=== PATIENT | female | born 1985 | race Caucasian/White ===

== ENCOUNTER 2022-12-17 17:52 | Emergency (ER) | payer MEDICAID, SELFPAY ==
[2022-12-17 18:00] VITALS: BP 123/94; PULSE 100; RESP 16; TEMP 37.2; O2SAT 99; BMI 46.8
--- NOTE | 2022-12-17 18:03 | XR_ITS ---
The [address] [address] Patient Name: YARIEL BAILEY MRN: [id number] date: 1985 Sex: F Assigned Patient Location: ER Current Patient Location: ER Accession/Order Number: [id number] Exam Date: 12/17/2022 18:05 Report Date: 12/17/2022 18:49 At the request of: AMALIA LAZARO Procedure: XR hand RT min 3V IMAGES REVIEWED: XR hand RT min 3V COMPARISON: None available. CLINICAL INDICATION: Pain/bruising FINDINGS/IMPRESSION: No evidence of acute osseous abnormality of the right hand/fifth digit. Mild soft tissue swelling. Electronically authenticated by: COOKIE DUVAL Date: 12/17/2022 18:49
--- NOTE | 2022-12-17 18:56 | ED.UPPEXIN1 ---
HPI - Extremity Injury (Upper) General Chief Complaint: Extremity Injury, Upper Stated Complaint: HAND INJURY Time Seen by Provider: 12/17/22 18:40 Source: patient Mode of arrival: walk-in Limitations: no limitations History of Present Illness HPI narrative: patient is a 37-year-old female who presents to the emergency department for the evaluation of an injury to the right hand. She states she punched a door earlier today. She had no other associated injuries. She has had swelling, bruising over the 4th and 5th MCP joints and right 5th metacarpal. no medications taken prior to arrival. She is not concerned for . She denies any pain over the wrist or forearm. Related Data Home Medications Medication Instructions Recorded Confirmed No Known Home Medications 12/17/22 12/17/22 Previous Rx's Medication Instructions Recorded ketorolac 10 mg tablet 10 mg PO TID PRN pain #10 tabs 12/17/22 Allergies Allergy/AdvReac Type Severity Reaction Status Date / Time Penicillins AdvReac Mild Verified 12/17/22 18:03 Review of Systems ROS Constitutional Denies: fever or chills Ears, nose, mouth, and throat Denies: throat pain or neck pain Respiratory Denies: cough Gastrointestinal Denies: nausea or vomiting Musculoskeletal Reports: extremity pain; Denies: back pain or neck pain Integumentary/Breast Denies: rash Neurological Denies: headache PFSH PFSH Social History Smoking status: Former smoker Exam Narrative Exam Narrative: Gen.: Awake, alert, in no distress Head: Normocephalic, atraumatic ENT: Moist mucous membranes Respiratory: No respiratory distress Extremities: Moves extremities equally, swelling, ecchymosis noted over the dorsum of the right hand, 5th metacarpal with mild edema over the 4th and 5th metacarpal joints. Limited flexion and extension of the 4th and 5th digits of the right hand. 2+ right radial pulse. Psych: Normal mood and affect Neuro: No focal neuro deficit Skin: Warm, dry, intact Constitutional Vital Signs - 24 hr 12/17/22 18:00 Temperature 99.0 F Pulse Rate [Monitor] 100 H Respiratory Rate 16 Blood Pressure [Left Arm] 123/94 H Pulse Oximetry 99 Oxygen Delivery Method Room Air Course Vital Signs Vital signs: Vital Signs Temperature 99.0 F 12/17/22 18:00 Pulse Rate 100 H 12/17/22 18:00 Respiratory Rate 16 12/17/22 18:00 Blood Pressure 123/94 H 12/17/22 18:00 Pulse Oximetry 99 12/17/22 18:00 Oxygen Delivery Method Room Air 12/17/22 18:00 Temperature 99.0 F 12/17/22 18:00 Pulse Rate 100 H 12/17/22 18:00 Respiratory Rate 16 12/17/22 18:00 Blood Pressure 123/94 H 12/17/22 18:00 Pulse Oximetry 99 12/17/22 18:00 Oxygen Delivery Method Room Air 12/17/22 18:00 MDM - Extremity Injury (Upper) MDM Narrative Medical decision making narrative: x-rays with no evidence of fracture or dislocation. Patient placed in a metal forearm splint and Reji wrap. she remains neurovascularly intact. Rest, ice, elevate. NSAIDs given for home. Return to the Emergency Room if symptoms change or worsen. Follow-up PCP. Medical Records Attestation: I reviewed the patient's medical records. Imaging Data XR right hand: Attestation: I have reviewed the pertinent imaging results. Radiologist's impression: Procedure: XR hand RT min 3V IMAGES REVIEWED: XR hand RT min 3V COMPARISON: None available. CLINICAL INDICATION: Pain/bruising FINDINGS/IMPRESSION: No evidence of acute osseous abnormality of the right hand/fifth digit. Mild soft tissue swelling. Electronically authenticated by: COOKIE DUVAL Date: 12/17/2022 18:49 Discharge Plan Discharge Chief Complaint: Extremity Injury, Upper Clinical Impression: Contusion of hand, right Patient Disposition: Home, Self-Care Time of Disposition Decision: 18:54 Condition: Good Prescriptions / Home Meds: New ketorolac 10 mg tablet 10 mg PO TID PRN (Reason: pain) Qty: 10 0RF No Action No Known Home Medications Instructions: Contusion in Adults (ED) Stand Alone Forms: Portal Instructions Referrals: Physician,Non-Staff, MD [Primary Care Provider] - 1 week
[2022-12-17] MEDS: KETOROLAC TROMETHAMINE 10 MG TABLET PO (19:04)
== END 2022-12-17 19:10 | disposition home or self-care (01) ==
PROVIDERS: Emergency Provider Emergency Medicine Emergency Medical Services
DX: S60.221A Contusion of right hand, initial encounter (principal); W22.8XXA Striking against or struck by other objects, initial encounter; Z87.891 Personal history of nicotine dependence
CPT/HCPCS: 73130; 99283

== ENCOUNTER 2023-05-19 10:27 | Emergency (ER) | payer MEDICAID, SELFPAY ==
[2023-05-19 10:43] VITALS: BP 111/75; PULSE 77; RESP 18; TEMP 36.8; O2SAT 98; BMI 45.4
--- NOTE | 2023-05-19 10:54 | XR_ITS ---
The [place] [id number] Patient Name: YARIEL BAILEY MRN: [id number] date: 1985 Sex: F Assigned Patient Location: ER Current Patient Location: ED.MAIN Accession/Order Number: [id number] Exam Date: 05/19/2023 11:00 Report Date: 05/19/2023 12:04 At the request of: ARLEY VELA Procedure: XR knee LT 4V LEFT KNEE X-RAY, 4 VIEWS HISTORY: Pain. COMPARISON: None. FINDINGS: No fracture, dislocation, or significant degenerative change is seen. There is no joint effusion. XR/XR knee LT 4V IMPRESSION: Normal knee. Electronically authenticated by: TOBIAS SPEARS Date: 05/19/2023 12:04
--- NOTE | 2023-05-19 17:17 | ED_ITS ---
HPI - General Adult General Chief complaint: Extremity Injury, Lower Stated complaint: LOWER EXTREMITY INJURY LEFT KNEE Time Seen by Provider: 05/19/23 10:53 Source: patient Mode of arrival: Wheelchair Limitations: no limitations History of Present Illness HPI narrative: The patient is coming to the ER with a left knee pain that started after she was trying to carry something patient mentioned that she felt a pop when she was bending over She barely have been able to put weight on her left knee because of the pain and she is not able to bend it Related Data Previous Rx's Medication Instructions Recorded acetaminophen 650 mg 650 mg PO Q8H PRN pain #20 tabs 05/19/23 tablet,extended release (Tylenol 8 Hour) prednisone 50 mg tablet 50 mg PO DAILY 5 days #5 tabs 05/19/23 Allergies Allergy/AdvReac Type Severity Reaction Status Date / Time Penicillins AdvReac Mild Verified 05/19/23 10:42 Review of Systems ROS Status of ROS 10 or more systems reviewed and unremarkable except as noted in history and below PFSH PFS Social History Smoking status: Former smoker Exam Narrative Exam Narrative: Nurses notes and vital signs reviewed and patient is not hypoxic. General: Well-appearing and in no apparent distress. Skin: Warm, dry, no pallor noted. No rash. Head: Normocephalic, atraumatic. Neck: Supple, non-tender. Eye: Pupils are equal, round and EOMI. No scleral icterus. Ears, Nose, Mouth, and Throat: TM are clear, no nasal mucosal hypertrophy. Oral mucosa is moist, no posterior oropharynx erythema, uvula is mid-line Cardiovascular: Regular Rate and Rhythm without murmur, gallop or rub. Respiratory: No accessory muscle use or respiratory distress. Lungs are clear to auscultation, no wheezing, rales or rhonchi Chest Wall: no tenderness Back: No midline thoracic or lumbar vertebral tenderness. No CVA tenderness Musculoskeletal: Decreased flexion of the left knee with the patient having tenderness upon palpation of the left lower infrapatellar level, GI: Abdomen is soft, non-distended. Normal bowel sounds. No masses appreciated. No tenderness to palpation. No rebound, guarding, or rigidity noted. Neurological: A&O x4. No cranial nerve dysfunction observed. No truncal ataxia. Moves all extremities. Sensation intact. Psychiatric: Cooperative and interactive. Normal mood and affect. Constitutional Vital Signs, click to edit/add: Last Vital Signs Temp 98.3 F 05/19/23 10:43 Pulse 77 05/19/23 10:43 Resp 18 05/19/23 10:43 BP 111/75 05/19/23 10:43 Pulse Ox 98 05/19/23 10:43 O2 Del Method Room Air 05/19/23 10:43 Course Vital Signs Vital signs: Vital Signs Temperature 98.3 F 05/19/23 10:43 Pulse Rate 77 05/19/23 10:43 Respiratory Rate 18 05/19/23 10:43 Blood Pressure 111/75 05/19/23 10:43 Pulse Oximetry 98 05/19/23 10:43 Oxygen Delivery Method Room Air 05/19/23 10:43 Temperature 98.3 F 05/19/23 10:43 Pulse Rate 77 05/19/23 10:43 Respiratory Rate 18 05/19/23 10:43 Blood Pressure 111/75 05/19/23 10:43 Pulse Oximetry 98 05/19/23 10:43 Oxygen Delivery Method Room Air 05/19/23 10:43 Medical Decision Making MDM Narrative Medical decision making narrative: X-ray of the knee showed no acute pathology the patient was treated with a prednisone as well as Tylenol to go home with in addition to a knee immobilizer and crutches and referred to orthopedic as outp atient The patient mostly coming with a knee sprain The patient is to follow up with primary care physician in next 2-3 days or to return to the emergency department should any of the signs or symptoms worsen or new symptoms develop. The patient agrees with the following Diagnosis and Treatment plan and the patient will be discharged home. Discharge Plan Discharge Chief Complaint: Extremity Injury, Lower Clinical Impression: Knee sprain Time of Disposition Decision: 12:11 Condition: Good Mode of Transportation: Private Vehicle Prescriptions / Home Meds: New prednisone 50 mg tablet 50 mg PO DAILY 5 Days Qty: 5 0RF acetaminophen [Tylenol 8 Hour] 650 mg tablet extended release 650 mg PO Q8H PRN (Reason: pain) Qty: 20 0RF Instructions: Knee Sprain (ED) Stand Alone Forms: Portal Instructions Referrals: Physician,Non-Staff, [Primary Care Provider] - 1 week Pierce Figueroa MD [Physician] - 1 week
== END 2023-05-19 12:39 | disposition home or self-care (01) ==
PROVIDERS: Emergency Provider Emergency Medicine
DX: S83.92XA Sprain of unspecified site of left knee, initial encounter (principal); X58.XXXA Exposure to other specified factors, initial encounter; Z87.891 Personal history of nicotine dependence
CPT/HCPCS: 73564; 99284

== ENCOUNTER 2023-06-03 10:47 | Emergency (ER) | payer MEDICAID, SELFPAY ==
[2023-06-03 10:54] VITALS: BP 129/80; PULSE 81; RESP 16; TEMP 37.1; O2SAT 98; BMI 43.9
--- NOTE | 2023-06-03 11:05 | ED.GENADUL1 ---
HPI - General Adult General Chief complaint: Upper Respiratory Infection Stated complaint: sore throat Time Seen by Provider: 06/03/23 10:54 Source: patient Mode of arrival: walk-in History of Present Illness HPI narrative: 37-year-old female presents for sore throat that she's had for two days. 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 No vomiting or diarrhea or cough. She doesn't complain of shortness of breath. The sore throat is worse when she swallows. Related Data Previous Rx's Medication Instructions Recorded acetaminophen 650 mg 650 mg PO Q8H PRN pain #20 tabs 05/19/23 tablet,extended release (Tylenol 8 Hour) Allergies Allergy/AdvReac Type Severity Reaction Status Date / Time Penicillins AdvReac Mild Verified 05/19/23 10:42 Review of Systems ROS Narrative A ten point review of systems is negative except as noted above. PFSH PFSH Social History Smoking status: Former smoker Exam Narrative Exam Narrative: Nurses note and vital signs reviewed and patient is not hypoxic. General: The patient appears well and in no apparent distress. Patient is resting comfortably on cart. Skin: Warm, dry, no pallor noted. There is no rash noted. Head: Normocephalic, atraumatic Eye: Normal conjunctiva, no drainage Ears, Nose, Mouth, and Throat: oral mucosa is moist. Nares patent. Mouth without vesicles. no pharyngeal exudate. Uvula midline. She is handling her oral secretions well. Cardiovascular: Regular Rate and Rhythm Respiratory: Patient is in no distress, no accessory muscle use, lungs are clear to auscultation, no wheezing, rales or rhonchi Back: non-tender GI: often and nontender Musculoskeletal: The patient has no evidence of calf tenderness, no pitting edema, symmetrical pulses noted bilaterally Neurological: A&O, normal speech Psychiatric: Cooperative Constitutional Vital Signs, click to edit/add: Last Vital Signs Temp 98.8 F 06/03/23 10:54 Pulse 81 06/03/23 10:54 Resp 16 06/03/23 10:54 BP 129/80 06/03/23 10:54 Pulse Ox 98 06/03/23 10:54 Course Vital Signs Vital signs: Vital Signs Temperature 98.8 F 06/03/23 10:54 Pulse Rate 81 06/03/23 10:54 Respiratory Rate 16 06/03/23 10:54 Blood Pressure 129/80 06/03/23 10:54 Pulse Oximetry 98 06/03/23 10:54 Temperature 98.8 F 06/03/23 10:54 Pulse Rate 81 06/03/23 10:54 Respiratory Rate 16 06/03/23 10:54 Blood Pressure 129/80 06/03/23 10:54 Pulse Oximetry 98 06/03/23 10:54 Medical Decision Making MDM Narrative Medical decision making narrative: strep test is negative. Antibiotic not indicated. She was offered IM Decadron but doesn't want an injection. Treatment diagnosis and follow up are discussed with the patient. Lab Data Lab results reviewed: Yes I reviewed the patient's lab results Labs: Lab Results 06/03/23 Range/Units 10:58 Streptococcus Screen Negative Discharge Plan Discharge Chief Complaint: Upper Respiratory Infection Clinical Impression: Pharyngitis Patient Disposition: Home, Self-Care Time of Disposition Decision: 11:29 Condition: Good Mode of Transportation: Private Vehicle Prescriptions / Home Meds: No Action acetaminophen [Tylenol 8 Hour] 650 mg tablet extended release 650 mg PO Q8H PRN (Reason: pain) Qty: 20 0RF Instructions: Pharyngitis (ED) Stand Alone Forms: Portal Instructions Referrals: Physician,Non-Staff, MD [Primary Care Provider] - 1 week
[2023-06-03 11:24] LABS: Internal Control Within Normal Limits; Strep A Antigen Screen Negative
== END 2023-06-03 11:36 | disposition home or self-care (01) ==
PROVIDERS: Emergency Provider Emergency Medicine
DX: J02.9 Acute pharyngitis, unspecified (principal); Z87.891 Personal history of nicotine dependence
CPT/HCPCS: 87070; 87880; 99283

== ENCOUNTER 2023-06-05 13:51 | Emergency (ER) | payer MEDICAID, SELFPAY ==
[2023-06-05 14:11] VITALS: BP 125/88; PULSE 77; RESP 18; TEMP 36.8; O2SAT 97; BMI 43.9
[2023-06-05 14:43] LABS: SARS-CoV-2 Ag NEGATIVE (NEGATIVE)
--- NOTE | 2023-06-05 15:36 | ED_ITS ---
Documented by User: Jeanniecandido [email or web address] 06/05/23 16:03 HPI - URI/Sore Throat General Chief Complaint: Upper Respiratory Infection Stated Complaint: CONGESTION/ HEADACHE Time Seen by Provider: 06/05/23 15:34 History of Present Illness HPI Narrative: 37 year old female presents to the ED for sinus congestion/drainage/pressure, sore throat, left ear pain. Onset was a few days ago. Reports evaluation here a few days ago with a negative strep screen. Denies fever, chills, SOB, emesis, diarrhea. She has been taking Tylenol and Motrin. Denies chance of . Rates her pain 11/24. Related Data Previous Rx's Medication Instructions Recorded acetaminophen 650 mg 650 mg PO Q8H PRN pain #20 tabs 05/19/23 tablet,extended release (Tylenol 8 Hour) cefdinir 300 mg capsule 300 mg PO BID 10 days #20 caps 06/05/23 Allergies Allergy/AdvReac Type Severity Reaction Status Date / Time Penicillins AdvReac Mild Verified 05/19/23 10:42 Review of Systems ROS Constitutional Denies: fever or chills Ears, nose, mouth, and throat Reports: throat pain, ear pain, nasal discharge and nasal congestion; Denies: neck pain, throat swelling, difficulty swallowing or ear discharge Cardiovascular Denies: chest pain Respiratory Reports: cough; Denies: shortness of breath Gastrointestinal Denies: abdominal pain, nausea, vomiting or diarrhea Musculoskeletal Denies: back pain or neck pain Integumentary/Breast Denies: rash Neurological Reports: headache and dizziness [facility] Social History Smoking status: Never smoker Exam Constitutional Vital Signs, click to edit/add: Last Vital Signs Temp 98.3 F 06/05/23 14:11 Pulse 77 06/05/23 14:11 Resp 18 06/05/23 14:11 BP 125/88 06/05/23 14:11 Pulse Ox 97 06/05/23 14:11 O2 Del Method Room Air 06/05/23 14:11 Common normals: no apparent distress and oriented x3 General appearance: cooperative HENMT Common normals: normocephalic Face and sinus: normal facial exam Nose: external nose normal and nasal discharge External auditory canal: EACs normal Tympanic membrane: TM normal on the left and TM abnormal TM laterality: right erythematous Mouth: oral and palatal mucosa normal, lip normal and tongue normal Eye Common normals: conjunctivae normal and no scleral icterus Neck & C-Spine Common normals: supple Chest Common normals: inspection of chest normal Chest: symmetrical chest wall rise Respiratory Common normals: normal respiratory effort Effort & inspection: able to speak in complete sentences Auscultation: clear to auscultation bilaterally Cardio Common normals: regular rate and regular rhythm Neuro Common normals: oriented x3 Sensorium/orientation: awake and alert Course Vital Signs Vital signs: Vital Signs Temperature 98.3 F 06/05/23 14:11 Pulse Rate 77 06/05/23 14:11 Respiratory Rate 18 06/05/23 14:11 Blood Pressure 125/88 06/05/23 14:11 Pulse Oximetry 97 06/05/23 14:11 Oxygen Delivery Method Room Air 06/05/23 14:11 Temperature 98.3 F 06/05/23 14:11 Pulse Rate 77 06/05/23 14:11 Respiratory Rate 18 06/05/23 14:11 Blood Pressure 125/88 06/05/23 14:11 Pulse Oximetry 97 06/05/23 14:11 Oxygen Delivery Method Room Air 06/05/23 14:11 MDM - URI/Sore Throat MDM Narrative Medical decision making narrative: Covid-19 was negative today. She will be treated for left otitis media. She reported a rash with PCN. A prescription was provided for omnicef. OTC mucinex as directed was discussed. Follow up with pcp for a recheck, further evaluation and treatment. Differential Diagnosis Differential diagnosis: Likely upper respiratory infection, otitis media, sinusitis, viral infection and bronchitis Medical Records Attestation: I reviewed the patient's medical records. Lab Data Attestation: I reviewed the patient's lab results. Labs: Lab Results 06/05/23 Range/Units 14:20 SARS-CoV-2 (PCR) Negative (NEGATIVE) Discharge Plan Discharge Chief Complaint: Upper Respiratory Infection Clinical Impression: Acute otitis media, left, URI (upper respiratory infection) Patient Disposition: Home, Self-Care Time of Disposition Decision: 15:34 Condition: Good Mode of Transportation: Private Vehicle Prescriptions / Home Meds: New cefdinir 300 mg capsule 300 mg PO BID 10 Days Qty: 20 0RF No Action acetaminophen [Tylenol 8 Hour] 650 mg tablet extended release 650 mg PO Q8H PRN (Reason: pain) Qty: 20 0RF Instructions: Ear Infection (ED), Upper Respiratory Infection (ED) Stand Alone Forms: Portal Instructions Referrals: Physician,Non-Staff, MD [Primary Care Provider] - 1 week Discharge Date/Time: 06/05/23 15:47 Documented by User: Zi Dc MD 06/05/23 19:35 HPI - URI/Sore Throat General Chief Complaint: Upper Respiratory Infection Stated Complaint: CONGESTION/ HEADACHE Time Seen by Provider: 06/05/23 15:34 Related Data Previous Rx's Medication Instructions Recorded acetaminophen 650 mg 650 mg PO Q8H PRN pain #20 tabs 05/19/23 tablet,extended release (Tylenol 8 Hour) cefdinir 300 mg capsule 300 mg PO BID 10 days #20 caps 06/05/23 Allergies Allergy/AdvReac Type Severity Reaction Status Date / Time Penicillins AdvReac Mild Verified 05/19/23 10:42 PFSH PFSH Social History Smoking status: Never smoker Exam Constitutional Vital Signs, click to edit/add: Last Vital Signs Temp 98.3 F 06/05/23 14:11 Pulse 77 06/05/23 14:11 Resp 18 06/05/23 14:11 BP 125/88 06/05/23 14:11 Pulse Ox 97 06/05/23 14:11 O2 Del Method Room Air 06/05/23 14:11 Course Vital Signs Vital signs: Vital Signs Temperature 98.3 F 06/05/23 14:11 Pulse Rate 77 06/05/23 14:11 Respiratory Rate 18 06/05/23 14:11 Blood Pressure 125/88 06/05/23 14:11 Pulse Oximetry 97 06/05/23 14:11 Oxygen Delivery Method Room Air 06/05/23 14:11 Temperature 98.3 F 06/05/23 14:11 Pulse Rate 77 06/05/23 14:11 Respiratory Rate 18 06/05/23 14:11 Blood Pressure 125/88 06/05/23 14:11 Pulse Oximetry 97 06/05/23 14:11 Oxygen Delivery Method Room Air 06/05/23 14:11 MDM - URI/Sore Throat MDM Narrative Medical decision making narrative: Covid-19 was negative today. She will be treated for left otitis media. She reported a rash with PCN. A prescription was provided for omnicef. OTC mucinex as directed was discussed. Follow up with pcp for a recheck, further evaluation and treatment. I, Dr Dc, have reviewed the above progress note and course of action in the ER; agree with the above. I have gone over history and physical, and discussed disposition and treatment plan with the patient. Lab Data Labs: Lab Results 06/05/23 Range/Units 14:20 SARS-CoV-2 (PCR) Negative (NEGATIVE) Discharge Plan Discharge Chief Complaint: Upper Respiratory Infection Clinical Impression: Acute otitis media, left, URI (upper respiratory infection) Patient Disposition: Home, Self-Care Time of Disposition Decision: 15:34 Condition: Good Mode of Transportation: Private Vehicle Prescriptions / Home Meds: New cefdinir 300 mg capsule 300 mg PO BID 10 Days Qty: 20 0RF No Action acetaminophen [Tylenol 8 Hour] 650 mg tablet extended release 650 mg PO Q8H PRN (Reason: pain) Qty: 20 0RF Instructions: Ear Infection (ED), Upper Respiratory Infection (ED) Stand Alone Forms: Portal Instructions Referrals: Physician,Non-Staff, MD [Primary Care Provider] - 1 week Discharge Date/Time: 06/05/23 15:47
[2023-06-06 16:03] LABS: SARS-CoV-2 NAA NOT DETECTED (NOT DETECTE)
== END 2023-06-05 15:47 | disposition home or self-care (01) ==
PROVIDERS: Emergency Provider Emergency Medicine
DX: H66.92 Otitis media, unspecified, left ear (principal); J06.9 Acute upper respiratory infection, unspecified; Z20.822 Contact with and (suspected) exposure to COVID-19
CPT/HCPCS: 87635; 87811; 99283

== ENCOUNTER 2023-06-10 13:22 | Emergency (ER) | payer MEDICAID, SELFPAY ==
[2023-06-10 13:28] VITALS: BP 115/80; PULSE 104; RESP 18; TEMP 36.6; O2SAT 98; BMI 34.5
--- NOTE | 2023-06-10 13:46 | ED.URI1 ---
HPI - URI/Sore Throat General Chief Complaint: Recheck/Abnormal Lab/Rx Stated Complaint: POSS COVID Time Seen by Provider: 06/10/23 13:29 Source: patient Limitations: no limitations History of Present Illness HPI Narrative: 37-year-old female presents because she is concerned she has Covid. She took a home test and it was positive and multiple people in her household have it. Her boss told her that she needed to come to the Emergency Room to get a note and confirmation. She's had some congestion and slight cough. No vomiting or fever. She's had these symptoms for a few days. Related Data Previous Rx's Medication Instructions Recorded acetaminophen 650 mg 650 mg PO Q8H PRN pain #20 tabs 05/19/23 tablet,extended release (Tylenol 8 Hour) cefdinir 300 mg capsule 300 mg PO BID 10 days #20 caps 06/05/23 Allergies Allergy/AdvReac Type Severity Reaction Status Date / Time Penicillins AdvReac Mild Verified 05/19/23 10:42 Review of Systems ROS Narrative A ten point review of systems is negative except as noted above. PFSH PFSH Social History Smoking status: Never smoker Exam Narrative Exam Narrative: Nurses note and vital signs reviewed and patient is not hypoxic. General: The patient appears well and in no apparent distress. Patient is resting comfortably on cart. Skin: Warm, dry, no pallor noted. There is no rash noted. Head: Normocephalic, atraumatic Eye: Normal conjunctiva, no drainage ENT: oral mucosa well hydrated Cardiovascular: Regular Rate and Rhythm Respiratory: Patient is in no distress, no accessory muscle use, lungs are clear to auscultation, no wheezing, rales or rhonchi Back: non-tender GI: soft and nontender Musculoskeletal: The patient has no evidence of calf tenderness, no pitting edema, symmetrical pulses noted bilaterally Neurological: A&O, normal speech Psychiatric: Cooperative Constitutional Vital Signs, click to edit/add: Last Vital Signs Temp 97.9 F 06/10/23 13:28 Pulse 104 H 06/10/23 13:28 Resp 18 06/10/23 13:28 BP 115/80 06/10/23 13:28 Pulse Ox 98 06/10/23 13:28 Course Vital Signs Vital signs: Vital Signs Temperature 97.9 F 06/10/23 13:28 Pulse Rate 104 H 06/10/23 13:28 Respiratory Rate 18 06/10/23 13:28 Blood Pressure 115/80 06/10/23 13:28 Pulse Oximetry 98 06/10/23 13:28 Temperature 97.9 F 06/10/23 13:28 Pulse Rate 104 H 06/10/23 13:28 Respiratory Rate 18 06/10/23 13:28 Blood Pressure 115/80 06/10/23 13:28 Pulse Oximetry 98 06/10/23 13:28 MDM - URI/Sore Throat MDM Narrative Medical decision making narrative: Covid test is positive and she was informed. Differential Diagnosis Differential diagnosis: Likely upper respiratory infection, influenza and other (Covid) Lab Data Labs: Lab Results 06/10/23 Range/Units 13:33 SARS-CoV-2 (PCR) Positive A (NEGATIVE) Influenza Type A Ag Negative Influenza Type B Ag Negative Discharge Plan Discharge Chief Complaint: Recheck/Abnormal Lab/Rx Clinical Impression: COVID-19 Patient Disposition: Home, Self-Care Time of Disposition Decision: 14:20 Condition: Good Mode of Transportation: Private Vehicle Prescriptions / Home Meds: No Action cefdinir 300 mg capsule 300 mg PO BID 10 Days Qty: 20 0RF acetaminophen [Tylenol 8 Hour] 650 mg tablet extended release 650 mg PO Q8H PRN (Reason: pain) Qty: 20 0RF Instructions: COVID-19 (Coronavirus Disease 2019) (ED), COVID-19: Slow the Coronavirus Spread (ED), Face Coverings (Masks) and COVID-19 (ED), How to Recover from COVID-19 at Home (ED) Stand Alone Forms: Portal Instructions Referrals: Physician,Non-Staff, MD [Primary Care Provider] - 1 week Discharge Date/Time: 06/10/23 14:29
[2023-06-10 14:00] LABS: SARS-CoV-2 Ag POSITIVE (NEGATIVE)
[2023-06-10 14:09] LABS: Influenza Virus A Antigen Negative; Influenza Virus B Antigen Negative; Internal Control Within Normal Limits
== END 2023-06-10 14:29 | disposition home or self-care (01) ==
PROVIDERS: Emergency Provider Emergency Medicine
DX: U07.1 COVID-19 (principal)
CPT/HCPCS: 87804; 87811; 99283

== ENCOUNTER 2024-04-17 14:02 | Emergency (ER) | payer OTHER, MEDICAID, SELFPAY ==
[2024-04-17 14:07] VITALS: BP 166/83; PULSE 80; TEMP 36.7; O2SAT 99; BMI 46.8
--- NOTE | 2024-04-17 14:25 | ECG_ITS ---
[facility] Test Date: 2024-04-17 Pat Name: YARIEL BAILEY Department: Room: - Gender: Female Keeper Head: : 1985 Requested By: Order Number: [id number] Reading MD: SPENCER WOODS Measurements Intervals [place] Rate: 69 P: 49 TN: 142 QRS: 44 QRSD: 74 T: 16 QT: 364 QTc: 383 Interpretive Statements 1100 Sinus rhythm 1102 Sinus arrhythmia 9110 normal ECG Compared to ECG 04/06/2022 05:21:38 No significant changes Electronically Signed On 04-17-2024 18:38:49 EDT by SPENCER WOODS
--- NOTE | 2024-04-17 14:25 | XR_ITS ---
The [address] [address] Patient Name: YARIEL BAILEY MRN: [id number] date: 1985 Sex: F Assigned Patient Location: ER Current Patient Location: ER Accession/Order Number: [id number] Exam Date: 04/17/2024 14:40 Report Date: 04/17/2024 14:56 At the request of: ARLEY VELA Procedure: XR chest 1V EXAMINATION: XR chest 1V HISTORY: sob COMPARISON: 04/06/2022 TECHNIQUE: AP portable FINDINGS: LUNGS: No significant pulmonary parenchymal abnormalities. VASCULATURE: No increased pulmonary vasculature. PLEURA: No pneumothorax, effusion, or pleural thickening. CARDIAC: No cardiomegaly or cardiac silhouette abnormality. MEDIASTINUM: No visible mass or adenopathy. BONES: No fracture or visible bone lesion. OTHER: Negative. XR/XR chest 1V IMPRESSION: No acute cardiopulmonary process Electronically authenticated by: LYNDON HERNANDEZ Date: 04/17/2024 14:56
[2024-04-17 14:47] LABS: Basophils Absolute Auto 0.1 10^3/uL (0.0-0.1); Basophils Percent Auto 0.5 % (0.2-2.0); Eosinophils Absolute Auto 0.1 10^3/uL (0.0-0.7); Hematocrit 36.3 % (36.0-48.0); Hemoglobin 11.4 g/dL (12.0-16.0); Immature Granulocytes Abs Auto 0.07 10^3/uL (0.00-0.03); Immature Granulocytes Pct Auto 0.6 % (0.0-0.5); Lymphocytes Percent Auto 18.2 % (20.5-60.0); Mean Corpuscular HGB Conc 31.4 g/dL (29.9-35.2); Mean Corpuscular Hemoglobin 22.3 pg (26.7-34.0); Mean Platelet Volume 11.5 fL (9.5-13.5); Monocytes Absolute Auto 0.5 10^3/uL (0.3-0.8); Monocytes Percent Auto 4.4 % (1.7-12.0); Neutrophils Absolute Auto 8.3 10^3/uL (1.4-6.5); Neutrophils Percent Auto 75.3 % (43.0-75.0); Platelet Count 271 10^3/uL (150-450); Red Blood Count 5.11 10^6/uL (4.20-5.40); Red Cell Distribution Width 15.5 % (11.0-15.0)
--- NOTE | 2024-04-17 14:48 | ED_ITS ---
HPI HPI - General Adult General Chief complaint: Weakness Stated complaint: SHORTNESS OF BREATH Time Seen by Provider: 04/17/24 14:17 Source: patient Mode of arrival: walk-in History of Present Illness HPI narrative: The patient is a 38-year-old female is coming to us after she started having symptoms almost 4 days ago, this all started when she started [id number] last Saturday with her kids she mentioned that she has been having those symptoms of sore throat ,ear pain in addition to a mild cough, the patient mentioned that feeling some chest tightness since last night although the patient denies any nausea vomiting Patient had some nasal congestion and bilateral ear pain The patient is showing no distress and complaining of no abdominal pain or nausea or vomiting Related Data Previous Rx's ?Medication ?Instructions ?Recorded acetaminophen 650 mg 650 mg PO Q8H PRN pain #20 tabs 05/19/23 tablet,extended release (Tylenol 8 Hour) cefdinir 300 mg capsule 300 mg PO BID 10 days #20 caps 06/05/23 Allergies Allergy/AdvReac Type Severity Reaction Status Date / Time Penicillins AdvReac Mild Verified 05/19/23 10:42 Opioid HPI Opioid Management Most Recent Opioid Data: Last Pain Scale 7 05/19/23 10:50 05/19/23 Review of Systems ROS Status of ROS 10 or more systems reviewed and unremark able except as noted in history and below PFSH PFSH Social History Smoking status: Never smoker Little interest or pleasure in doing things: not at all Feeling down, depressed, or hopeless: not at all Exam Narrative Exam Narrative: Nurses notes and vital signs reviewed and patient is not hypoxic. General: Well-appearing and in no apparent distress. Skin: Warm, dry, no pallor noted. No rash. Head: Normocephalic, atraumatic. Neck: Supple, non-tender. Eye: Pupils are equal, round and EOMI. No scleral icterus. Ears, Nose, Mouth, and Throat: TM are clear, no nasal mucosal hypertrophy. Oral mucosa is moist, no posterior oropharynx erythema, uvula is mid-line Cardiovascular: Regular Rate and Rhythm without murmur, gallop or rub. Respiratory: No accessory muscle use or respiratory distress. Lungs are clear to auscultation, no wheezing, rales or rhonchi Chest Wall: no tenderness Back: No midline thoracic or lumbar vertebral tenderness. No CVA tenderness Musculoskeletal: normal ROM, no calf or popliteal tenderness, no lower extremi ty edema/swelling GI: Abdomen is soft, non-distended. Normal bowel sounds. No masses appreciated. No tenderness to palpation. No rebound, guarding, or rigidity noted. Neurological: A&O x4. No cranial nerve dysfunction observed. No truncal ataxia. Moves all extremities. Sensation intact. Psychiatric: Cooperative and interactive. Normal mood and affect. Constitutional Vital Signs, click to edit/add: Last Vital Signs Temp 98.1 F 04/17/24 14:07 Pulse 79 04/17/24 15:11 Resp 16 04/17/24 15:11 BP 135/84 04/17/24 15:11 Pulse Ox 100 04/17/24 15:11 O2 Del Method Room Air 04/17/24 15:11 Course Vital Signs Vital signs: Vital Signs Temperature 98.1 F 04/17/24 14:07 Pulse Rate 80 04/17/24 14:07 Respiratory Rate 18 04/17/24 14:07 Blood Pressure 166/83 H 04/17/24 14:07 Pulse Oximetry 99 04/17/24 14:07 Oxygen Delivery Method Room Air 04/17/24 14:07 Temperature 98.1 F 04/17/24 14:07 Pulse Rate 79 04/17/24 15:11 Respiratory Rate 16 04/17/24 15:11 Blood Pressure 135/84 04/17/24 15:11 Pulse Oximetry 100 04/17/24 15:11 Oxygen Delivery Method Room Air 04/17/24 15:11 Medical Decision Making [facility] Narrative Medical decision making narrative: The patient EKG showing sinus rhythm with a heart rate of [address] elevation or depression The patient presentation for the last 5 days has been more of a viral illness symptoms and the chest tightness that she been feeling since yesterday could be related to mild bronchitis that she is having specially with the cough and the nasal congestion The patient CBC shows no acute significant pathology the chemistry was within normal The patient chest x-ray showed no acute pathology Right now the patient presentation could be secondary to viral illness symptoms of mild proctitis and nasal congestion The patient will continue supportive care at home The patient is to follow up with primary care physician in next 2-3 days or to return to the emergency department should any of the signs or symptoms worsen or new symptoms develop. The patient agrees with the following Diagnosis and Treatment plan and the patient will be discharged home. Lab Data Labs: Lab Results 04/17/24 Range/Units 14:31 WBC 11.0 (4.0-11.0) 10^3/uL RBC 5.11 (4.20-5.40) 10^6/uL Hgb 11.4 L (12.0-16.0) g/dL Hct 36.3 (36.0-48.0) % MCV 71.0 L (81.0-99.0) fL MCH 22.3 L (26.7-34.0) pg MCHC 31.4 (29.9-35.2) g/dL RDW 15.5 H (11.0-15.0) % Plt Count 271 (150-450) 10^3/uL MPV 11.5 (9.5-13.5) fL Neut % (Auto) 75.3 H (43.0-75.0) % Lymph % (Auto) 18.2 L (20.5-60.0) % Curry % (Auto) 4.4 (1.7-12.0) % Eos % (Auto) 1.0 (0.9-7.0) % Baso % (Auto) 0.5 (0.2-2.0) % Neut # (Auto) 8.3 H (1.4-6.5) 10^3/uL Lymph # (Auto) 2.0 (1.2-3.8) 10^3/uL Curry # (Auto) 0.5 (0.3-0.8) 10^3/uL Eos # (Auto) 0.1 (0.0-0.7) 10^3/uL Baso # (Auto) 0.1 (0.0-0.1) 10^3/uL Abs Immat Gran (auto) 0.07 H (0.00-0.03) 10^3/uL Imm/Tot Granulo (auto) 0.6 H (0.0-0.5) % Sodium 136 (136-145) mmol/L Potassium 3.8 (3.5-5.1) mmol/L Chloride 101 (98-107) mmol/L Carbon Dioxide 23.7 (21.0-32.0) mmol/L Anion Gap 15.1 BUN 13.0 (7.0-18.0) mg/dL Creatinine 0.94 (0.55-1.02) mg/dL Est GFR ( Amer) >60 (>=60 mL/min/1.73m^2) Est GFR (Non-Af Amer) >60 (>=60 mL/min/1.73m^2) BUN/Creatinine Ratio 13.8 Glucose 110 H (74-106) mg/dL Calcium 9.1 (8.5-10.1) mg/dL Total Bilirubin 0.4 (0.2-1.0) mg/dL AST 16 (15-37) U/L ALT 15 (14-59) U/L Alkaline Phosphatase 126 H (46-116) U/L Troponin I High Sens <4.0 L (4.0-51.3) pg/mL Total Protein 8.4 H (6.4-8.2) g/dL Albumin 3.4 (3.4-5.0) g/dL Globulin 5.0 g/dL Albumin/Globulin Ratio 0.7 Serum HCG, Qual Negative (NEGATIVE) Discharge Plan Discharge Chief Complaint: Weakness Clinical Impression: Acute viral syndrome Patient Disposition: Home, Self-Care Time of Disposition Decision: 15:17 Condition: Good Prescriptions / Home Meds: No Action cefdinir 300 mg capsule 300 mg PO BID 10 Days Qty: 20 0RF acetaminophen [Tylenol 8 Hour] 650 mg tablet extended release 650 mg PO Q8H PRN (Reason: pain) Qty: 20 0RF Print Language: Sri Lankan Instructions: Viral Syndrome (ED) Referrals: Physician,Non-Staff, MD [Primary Care Provider] - 1 week
[2024-04-17 14:59] LABS: HCG Qualitative NEGATIVE (NEGATIVE); Internal Control Within Normal Limits
[2024-04-17 15:07] LABS: Alanine Aminotransferase 15 U/L (14-59); Albumin Globulin Ratio 0.7; Albumin Level 3.4 g/dL (3.4-5.0); Alkaline Phosphatase 126 U/L (46-116); Anion Gap 15.1; Aspartate Amino Transferase 16 U/L (15-37); BUN Creatinine Ratio 13.8; Bilirubin Total 0.4 mg/dL (0.2-1.0); Calcium 9.1 mg/dL (8.5-10.1); Carbon Dioxide 23.7 mmol/L (21.0-32.0); Chloride 101 mmol/L (98-107); Estimated GFR (African America >60 (>=60 mL/min/1.73m^2); Estimated GFR (Non-African Ame >60 (>=60 mL/min/1.73m^2); Glucose 110 mg/dL (74-106); Potassium 3.8 mmol/L (3.5-5.1); Sodium 136 mmol/L (136-145); Total Protein 8.4 g/dL (6.4-8.2); Troponin I High Sensitivity <4.0 pg/mL (4.0-51.3)
[2024-04-17 15:11] VITALS: BP 135/84; PULSE 79; O2SAT 100
== END 2024-04-17 15:25 | disposition home or self-care (01) ==
PROVIDERS: Emergency Provider Emergency Medicine
DX: B34.9 Viral infection, unspecified (principal)
CPT/HCPCS: 36415; 71045; 80053; 84484; 84703; 85025; 93005; 99285

== ENCOUNTER 2024-08-20 17:41 | Emergency (ER) | payer OTHER, MEDICAID, SELFPAY ==
[2024-08-20 17:51] VITALS: BP 125/84; PULSE 83; TEMP 36.9; O2SAT 98; BMI 43.9
--- NOTE | 2024-08-20 18:02 | ED.URI1 ---
HPI - URI/Sore Throat General Chief Complaint: Upper Respiratory Infection Stated Complaint: FLU, SOB, COUGH Time Seen by Provider: 08/20/24 17:49 Source: patient History of Present Illness HPI Narrative: Patient is a 38-year-old female who presents to the emergency department for persistent cough. Patient states she has been sick for the last 4 to 5 days with nasal congestion, chest congestion and coughing. She has not had any objective fevers, vomiting or diarrhea. She has had posttussive emesis but does not feel nauseous. Multiple family members have tested positive for influenza A in the home. Her son was seen in this emergency department on 08/17/2024 after testing positive for influenza and the patient was placed empirically on Tamiflu. She has been taking this since 08/17. She states she has been using multiple gjao-qre-aqozuos medications for cough and she continues to have a persistent cough. She has no concern for . She does not smoke. Related Data Previous Rx's ?Medication ?Instructions ?Recorded acetaminophen 650 mg 650 mg PO Q8H PRN pain #20 tabs 05/19/23 tablet,extended release (Tylenol 8 Hour) cefdinir 300 mg capsule 300 mg PO BID 10 days #20 caps 06/05/23 hexfwmisglyfucj-mqirechwwcdgume-KB 10 ml PO Q6H PRN cold symptoms 08/20/24 2 mg-30 mg-10 mg/5 mL oral syrup #200 mL (Bromfed DM) methylprednisolone 4 mg tablets in See Rx Instructions .Route 08/20/24 a dose pack (Medrol (Evans)) .COMPLEX #21 ea ondansetron 4 mg disintegrating 4 mg PO Q6H PRN nausea and 08/20/24 tablet vomiting #12 tabs Allergies Allergy/AdvReac Type Severity Reaction Status Date / Time Penicillins AdvReac Mild Verified 05/19/23 10:42 Review of Systems ROS Constitutional Denies: fever or chills Ears, nose, mouth, and throat Reports: nasal congestion; Denies: throat pain Cardiovascular Denies: chest pain Respiratory Reports: shortness of breath, cough, change in phlegm color and chest congestion; Denies: wheezing or coughing up blood Gastrointestinal Denies: nausea, vomiting or diarrhea Integumentary/Breast Denies: rash Neurological Denies: numbness in extremities or weakness in extremities Hematologic/Lymphatic Denies: easy bruising or easy bleeding PFSH PFSH Social History Smoking status: Never smoker Little interest or pleasure in doing things: not at all Feeling down, depressed, or hopeless: not at all Exam Narrative Exam Narrative: Gen.: Awake, alert, in no distress Head: Normocephalic, atraumatic ENT: Moist mucous membranes, bilateral TMs clear Respiratory: No respiratory distress, lungs clear bilaterally; patient speaks in full sentences, no wheezing or rhonchi Cardio: Regular rate and rhythm Extremities: Moves extremities equally Psych: Normal mood and affect Neuro: No focal neuro deficit Skin: Warm, dry, intact Constitutional Vital Signs, click to edit/add: Last Vital Signs Temp 98.4 F 08/20/24 17:51 Pulse 83 08/20/24 17:51 Resp 18 08/20/24 17:51 BP 125/84 08/20/24 17:51 Pulse Ox 98 08/20/24 17:51 O2 Del Method Room Air 08/20/24 17:51 Course Vital Signs Vital signs: Vital Signs Temperature 98.4 F 08/20/24 17:51 Pulse Rate 83 08/20/24 17:51 Respiratory Rate 18 08/20/24 17:51 Blood Pressure 125/84 08/20/24 17:51 Pulse Oximetry 98 08/20/24 17:51 Oxygen Delivery Method Room Air 08/20/24 17:51 Temperature 98.4 F 08/20/24 17:51 Pulse Rate 83 08/20/24 17:51 Respiratory Rate 18 08/20/24 17:51 Blood Pressure 125/84 08/20/24 17:51 Pulse Oximetry 98 08/20/24 17:51 Oxygen Delivery Method Room Air 08/20/24 17:51 MDM - URI/Sore Throat MDM Narrative Medical decision making narrative: Patient with benign vital signs, she is seen frequently in this emergency department and is currently being treated for influenza with Tamiflu. She is hemodynamically stable. She has a dry cough on exam. Chest x-ray shows normal heart size with no consolidation. She is given Decadron in the ER and discharged home on Bromfed-DM, Medrol Dosepak and Zofran as needed. Follow-up PCP and return to the ER if symptoms change or worsen SUPERVISED APC VISIT, PHYSICIAN ATTESTATION: Based on the medical record the care appears appropriate. ? Medical Records Attestation: I reviewed the patient's medical records. Imaging Data Chest x-ray: Attestation: I have reviewed the pertinent imaging results. Discharge Plan Discharge Chief Complaint: Upper Respiratory Infection Clinical Impression: Upper respiratory infection Patient Disposition: Home, Self-Care Time of Disposition Decision: 19:16 Condition: Good Prescriptions / Home Meds: New methylprednisolone [Medrol (Evans)] 4 mg tablets,dose pack See Rx Instructions .ROUTE .COMPLEX Qty: 21 0RF Rx Instructions: Taper as directed jwxtjsgeswgcxmr-euulttxpi-IV [Bromfed DM] 2-30-10 mg/5 mL syrup 10 ml PO Q6H PRN (Reason: cold symptoms) Qty: 200 0RF ondansetron 4 mg tablet,disintegrating 4 mg PO Q6H PRN (Reason: nausea and vomiting) Qty: 12 0RF No Action cefdinir 300 mg capsule 300 mg PO BID 10 Days Qty: 20 0RF acetaminophen [Tylenol 8 Hour] 650 mg tablet extended release 650 mg PO Q8H PRN (Reason: pain) Qty: 20 0RF Print Language: Bulgarian Instructions: Upper Respiratory Infection (ED) Referrals: Physician,Non-Staff, MD [Primary Care Provider] - 1 week
[2024-08-20] MEDS: DEXAMETHASONE SOD PHOS 10 MG/ML VIAL PO (18:11)
== END 2024-08-20 19:35 | disposition home or self-care (01) ==
PROVIDERS: Emergency Provider Emergency Medicine
DX: J06.9 Acute upper respiratory infection, unspecified (principal)
CPT/HCPCS: 71045; 99283; J1100